=== PATIENT | male | born 1970 | race Asian ===

== ENCOUNTER 2017-12-03 18:49 | Emergency (ER) | payer OTHER, SELFPAY ==
[2017-12-03 18:54] VITALS: BP 131/85; PULSE 89; RESP 18; TEMP 36.6; O2SAT 100
--- NOTE | 2017-12-03 19:15 | ED.UPPEXIN ---
HPI - Extremity Injury (Upper) General Chief Complaint: Extremity Injury, Upper Stated Complaint: CUT TWO FINGER PRETTY BAD RT HAND Time Seen by Provider: 12/03/17 19:13 Source: patient Mode of arrival: ambulatory Limitations: no limitations History of Present Illness HPI narrative: Patient to the ED with chief complaint of deep laceration to R index finger from a saw while cutting frozen fish while at work. He denies any other injury. MD complaint: injury to: right and finger Onset (ago): hour(s) Other injuries: none Handedness: right Place: work Severity: moderate Relieving factors: immobilization Exacerbating factors: movement of extremity Context: laceration Associated symptoms: denies other symptoms Related Data Home Medications Medication Instructions Recorded Confirmed [CHOLESTEROL MED] BID #0 04/19/17 lisinopril 20 mg PO QDAY #0 04/19/17 Previous Rx's Medication Instructions Recorded hydrocodone-acetaminophen [Paramus] 1 tab PO Q4HP PRN #7 tab 04/19/17 cephalexin [Keflex] 500 mg PO QID 7 Days #28 cap 12/03/17 hydrocodone-acetaminophen 1 tab PO Q4-6H PRN #14 tab 12/03/17 Allergies Allergy/AdvReac Type Severity Reaction Status Date / Time No Known Allergies Allergy Verified 12/03/17 19:19 Review of Systems Review of Systems All systems reviewed & are unremarkable except as noted in HPI and below Constitutional Denies chills, Denies fever(s), Denies lethargy and Denies weakness Eyes Denies change in vision, Denies eye discharge, Denies irritation and Denies loss of vision ENT Ears, Nose, Mouth, and Throat: Denies change in voice, Denies neck pain and Denies sore throat Cardiovascular Denies chest pain, Denies irregular heart rhythm, Denies lightheadedness, Denies palpitations, Denies dyspnea, Denies dyspnea on exertion and Denies orthopnea Respiratory Denies cough, Denies dyspnea, Denies dyspnea on exertion and Denies wheezing Genitourinary Denies hematuria, Denies flank pain, Denies urinary incontinence and Denies urinary urgency Musculoskeletal Denies neck pain and Reports numbness (to tip of finger) Integumentary/Breasts Comments: deep laceration Neurologic Denies confusion, Denies loss of vision, Reports numbness (to tip of finger) and Denies weakness Psychiatric Denies anxiety, Denies confusion, Denies depression, Denies homicidal ideation and Denies suicidal ideation Endocrine Denies palpitations Allergic/Immunologic Denies wheezing PFSH Social History Smoking Status: Former smoker Exam Initial Vital Signs Initial Vital Signs: Vital Signs Temperature 97.9 F 12/03/17 18:54 Pulse Rate 89 12/03/17 18:54 Respiratory Rate 18 12/03/17 18:54 Blood Pressure 131/85 H 12/03/17 18:54 Pulse Oximetry 100 12/03/17 18:54 Const General: cooperative and well developed Nutritional Appearance: well nourished Orientation: alert, awake, oriented x3 and not confused HENMT Head: normocephalic and atraumatic Ears: external ears normal and TM's normal bilaterally Nose: external nose normal and No nasal discharge Face and sinus: sinuses nontender, face symmetric, no sinus tenderness and No dry mucous membranes Mouth: oral mucosae normal and moist mucous membranes Teeth and gingiva: dentition normal Throat: tonsils normal and uvula midline Resp Effort & Inspection: normal respiratory effort, able to speak in complete sentences, no respiratory distress and no use of accessory muscles Auscultation: clear to auscultation bilaterally, no rales, no rhonchi and no wheezes GI Inspection: non-distended Palpation: soft, no hepatosplenomegaly, No guarding, No pulsatile mass and No tender Auscultation: normal bowel sounds Back/Spine/Pelvis Back: No CVA tenderness Cervical Spine: cervical ROM normal and No pain with cervical ROM Thoracic/Lumbar Spine: thoracic and lumbar spine normal to inspection Skin Trauma: laceration (volar surface of R index finger just distal to DIP) Neuro General: alert, awake and oriented x3 Motor: muscle tone normal throughout Procedures Joint Aspiration/Injection Laceration 1: Site: hand Side (If applicable): right Size (cm): 3 Description: linear Depth: simple, single layer Local Anesthetic: lidocaine 1% and with bicarb Pre-repair: wound explored, irrigated extensively and deep structures intact Skin layer closed with: nylon Size (cm): 5-0 Number of sutures: 6 Technique: simple, interrupted Course Orders Ordered: ED Orders 12/03/17 19:16 XR finger RT min 2V Stat Discontinued Medications Hydrocodone Bitart/Acetaminophen (Paramus 5/325) 1 tab PO NOW ONE Stop: 12/03/17 19:17 Last Admin: 12/03/17 19:30 Dose: 1 tab Diphtheria/Tetanus/Acell Pertussis (Adacel) 0.5 ml IM .ONCE ONE Stop: 12/03/17 19:17 Last Admin: 12/03/17 19:31 Dose: 0.5 ml Vital Signs - 8 hr 12/03/17 18:54 Temperature 97.9 F Pulse Rate 89 Respiratory Rate 18 Blood Pressure 131/85 H Pulse Oximetry 100 Discharge Plan Departure Patient Disposition: Home, Self-Care Clinical Impression: Laceration of finger, index Instructions: DI for Laceration Repair Activity Restrictions/Additional Instructions: 1. Take meds as directed 2. Keep dressing clean and dry 3. Follow up with Wound Care, call for appointment 4. Return to the ED for worsening, symptoms or signs of infection such as redness, increasing pain, fever over 101F or other concerns Prescriptions: New hydrocodone-acetaminophen 5-325 mg tablet 1 tab PO Q4-6H PRN (Reason: pain) Qty: 14 RF: 0 cephalexin [Keflex] 500 mg capsule 500 mg PO QID 7 Days Qty: 28 RF: 0 No Action lisinopril 20 MG tablet 20 mg PO QDAY Qty: 0 RF: 0 [CHOLESTEROL MED] BID Qty: 0 RF: 0 hydrocodone-acetaminophen [Paramus] 5 MG/325 MG tablet 1 tab PO Q4HP PRNQty: 7 RF: 0 Referrals: Conrad Mclaughlin MD [Physician] -
--- NOTE | 2017-12-03 19:16 | DI.RAD.S_ITS ---
PROCEDURE: XR FINGER RT MIN 2V INDICATIONS: chainsaw injury to finger, pain, cannot move TECHNIQUE: AP hand, 2 views of the second finger(s) acquired. COMPARISON: None. FINDINGS: Bones: No fractures or dislocations. No suspicious bony lesions. Soft tissues: No suspicious soft tissue calcifications. IMPRESSION: No fracture or foreign body seen but the second digit distal soft tissues are distorted consistent with the clinical history provided of chainsaw injury. Dictated by: Alok Yusuf M.D. on 12/03/2017 at 20:05 Approved by: Alok Yusuf M.D. on 12/03/2017 at 20:05
[2017-12-03] MEDS: HYDROCODONE/ACET 5/325 TABLET 1 TAB PO (19:30)
[2017-12-03] MEDS: TET,DIPH,PERTUSS(ACELL),VAC/PF 0.5 ML SYRINGE IM (19:31)
[2017-12-03 21:22] VITALS: BP 121/91; PULSE 71; RESP 15; O2SAT 99
== END 2017-12-03 21:23 | disposition home or self-care (01) ==
PROVIDERS: Emergency Provider Emergency Medicine
DX: S61.210A Laceration without foreign body of right index finger without damage to nail, initial encounter (principal); W31.2XXA Contact with powered woodworking and forming machines, initial encounter
CPT/HCPCS: 12002; 73140; 90471; 99282; 99283; 90715

== ENCOUNTER 2019-06-14 13:32 | Emergency (ER) | payer OTHER, SELFPAY ==
[2019-06-14 13:57] VITALS: BP 153/108; PULSE 69; RESP 21; O2SAT 99; BMI 26.4
--- NOTE | 2019-06-14 13:59 | DI.RAD.S_ITS ---
PROCEDURE: XR CHEST 1V INDICATIONS: chest pain TECHNIQUE: One view of the chest was acquired. COMPARISON: None. FINDINGS: Surgical changes and devices: None. Lungs and pleura: Lungs are clear. No pleural effusions or pneumothorax. Mediastinum: Mediastinal contours appear normal. Heart size is normal. Bones and chest wall: No suspicious bony lesions. Overlying soft tissues appear unremarkable. IMPRESSION: No acute pulmonary process. Dictated by: Helen Medina M.D. on 06/14/2019 at 14:55 Approved by: Helen Medina M.D. on 06/14/2019 at 14:56
[2019-06-14 14:22] LABS: Prothrombin Time 11.7 SECONDS (10.1-12.7)
[2019-06-14 14:25] LABS: PTT Partial Thromboplastin Tim 31 SECONDS (26.4-36.2)
[2019-06-14 14:27] LABS: Alanine Aminotransferase 135 IU/L (<50); Albumin 4.7 g/dL (3.5-5.0); Albumin Globulin Ratio 1.4 (1.0-2.8); Alkaline Phosphatase 65 U/L (38-126); Aspartate Aminotransferase 80 IU/L (17-59); BUN Creatinine Ratio 13.3 (6-22); Bilirubin Total 1.1 mg/dL (0.2-1.3); Blood Urea Nitrogen 12 mg/dL (9-20); Calcium 10.1 mg/dL (8.4-10.2); Carbon Dioxide 26 mmol/L (22-32); Chloride 102 mmol/L (98-107); Creatine Kinase 126 U/L (55-170); Estimated Glomerular Filt Rate > 60.0 mL/min (>60); Globulin 3.4 g/dL (1.7-4.1); Glucose 104 mg/dL (70-100); HEMOLYSIS < 15 (0-50); Lipase 91 U/L (23-300); Potassium 3.7 mmol/L (3.4-5.1); Sodium 136 mmol/L (137-145); Total Protein 8.1 g/dL (6.3-8.2)
[2019-06-14 14:35] LABS: Add Manual Diff / Slide Review NO; Basophils Absolute Auto 100 /uL (0-100); Eosinophils Absolute Auto 500 /uL (0-450); Eosinophils Percent Auto 7.6 % (2-4); Hematocrit 46.5 % (41-53); Hemoglobin 15.8 g/dL (13.5-17.5); Lymphocytes Absolute Auto 2900 /uL (1100-4500); Lymphocytes Percent Auto 43.5 % (25-40); Mean Corpuscular HGB Conc 34.1 % (30-36); Mean Corpuscular Hemoglobin 31.2 PG (26-34); Mean Corpuscular Volume 91.6 fL (80-100); Monocytes Absolute Auto 600 /uL (0-900); Monocytes Percent Auto 8.7 % (3-14); Neutrophils Absolute Auto 2600 /uL (1500-7000); Neutrophils Percent Auto 39.2 % (50-75); Platelet Count 225 X10^3/uL (150-400); Red Blood Cell Count 5.07 X10^6/uL (4.5-5.9); Red Cell Distribution Width 13.5 % (11.6-14.8); White Blood Cell Count 6.7 X10^3/uL (4.5-11.0)
[2019-06-14 14:39] LABS: Troponin I < 0.012 ng/mL (0.01-0.034)
[2019-06-14 14:43] LABS: CKMB % Relative Index 0.4 % (1.5-5.0); Creatine Kinase MB 0.52 ng/mL (<2.37)
[2019-06-14 15:11] VITALS: BP 132/100; PULSE 71; RESP 18; O2SAT 99
[2019-06-14 16:36] VITALS: BP 138/100; PULSE 64; RESP 16; O2SAT 100
--- NOTE | 2019-06-14 16:50 | ED.CHESTPAIN ---
HPI - Chest Pain General Chief Complaint: Chest Pain Stated Complaint: hypertension,symptamatic Time Seen by Provider: 06/14/19 14:29 Source: patient Mode of arrival: Ambulatory Limitations: no limitations History of Present Illness HPI narrative: Patient comes emergency department complaining of chest pain yesterday and neck pain that has been going on since yesterday, along with headache. patient denies radiation of the chest pain. He denies any nausea or vomiting. No shortness of breath. no fevers or chills. Patient has been able to move his neck, but complains of pain in the bilateral cervical paraspinal musculature. He describes the headache as frontal. No photophobia. No thunderclap. No other complaints at this time. Patient is on lisinopril 20 mg daily for his blood pressure. No recent dose changes. Related Data Home Medications Medication Instructions Recorded Confirmed lisinopril 20 mg PO DAILY #0 04/19/17 06/14/19 metformin 500 mg PO BID 06/14/19 06/14/19 Allergies Allergy/AdvReac Type Severity Reaction Status Date / Time No Known Allergies Allergy Verified 06/14/19 13:57 Review of Systems Constitutional Constitutional: Denies chills, Denies fatigue, Denies fever(s), Denies frequent falls, Reports headache(s), Denies lethargy and Denies weakness Eyes Eyes: Denies change in vision, Denies eye discharge, Denies irritation and Denies loss of vision ENT Ears, Nose, Mouth, and Throat: Denies change in voice, Denies dizziness, Reports headache(s), Reports neck pain, Denies sore throat and Denies throat swelling Cardiovascular Cardiovascular: Denies chest pain, Denies irregular heart rhythm, Denies lightheadedness, Denies palpitations, Denies dyspnea, Denies dyspnea on exertion and Denies orthopnea Respiratory Respiratory: Denies cough, Denies dyspnea, Denies dyspnea on exertion and Denies wheezing Gastrointestinal Gastrointestinal: Denies abdominal pain, Denies change in bowel habits, Denies diarrhea, Denies nausea and Denies vomiting Genitourinary Genitourinary: Denies hematuria, Denies flank pain, Denies urinary incontinence and Denies urinary urgency Musculoskeletal Musculoskeletal: Denies back pain, Denies muscle weakness, Reports neck pain, Denies numbness and Denies tingling Integumentary/Breasts Skin/Breast: Denies pruritus, Denies erythema, Denies rash and Denies wounds Neurologic Neurologic: Denies behavioral changes, Denies confusion, Denies dizziness, Denies frequent falls, Reports headache(s), Denies loss of vision, Denies numbness, Denies tingling and Denies weakness Psychiatric Psychiatric: Denies anxiety, Denies behavioral changes, Denies confusion, Denies depression, Denies homicidal ideation and Denies suicidal ideation Endocrine Endocrine: Denies fatigue, Denies flushing and Denies palpitations Hematologic/Lymphatic Hematologic/Lymphatic: Denies easy bruising Allergic/Immunologic Allergic/Immunologic: Denies urticaria, Denies throat swelling and Denies wheezing Patient History Social History Smoking Status: Former smoker alcohol intake frequency: 0-2 drinks per day Substance Use Type: does not use Exam Initial Vital Signs Initial Vital Signs: Vital Signs Pulse Rate 69 06/14/19 13:57 Respiratory Rate 21 06/14/19 13:57 Blood Pressure 153/108 H 06/14/19 13:57 Pulse Oximetry 99 06/14/19 13:57 Const General: cooperative and well developed Nutritional Appearance: well nourished Orientation: alert, awake, oriented x3 and not confused [place] Head: normocephalic and atraumatic Ears: external ears normal and TM's normal bilaterally Nose: external nose normal and No nasal discharge Face and sinus: sinuses nontender, face symmetric, no sinus tenderness and No dry mucous membranes Mouth: oral mucosae normal and moist mucous membranes Teeth and gingiva: dentition normal Throat: tonsils normal and uvula midline Eyes General: appearance normal, both eyes and all related structures Eyelids: eyelids normal Conjunctivae: conjunctivae normal Sclera: sclerae normal Pupils: PERRL EOM: EOM intact bilaterally Neck Neck: normal visual inspection, full ROM, no meningeal signs, trachea midline, No lymphadenopathy, No midline deformity, No positive Brudzinski's sign, No positive Kernig's sign and No JVD Lymphatic: No lymphedema Other: Mild tenderness, bilateral cervical paraspinal musculature. Chest Chest: normal inspection of the chest Resp Effort & Inspection: normal respiratory effort, able to speak in complete sentences, no respiratory distress and no use of accessory muscles Auscultation: clear to auscultation bilaterally, no rales, no rhonchi and no wheezes Cardio Rate: regular rate Rhythm: regular rhythm Heart Sounds: no click, no gallops, no murmurs and no rubs Pulses: normal peripheral pulses GI Inspection: non-distended Palpation: soft, no hepatosplenomegaly, No guarding, No pulsatile mass and No tender Auscultation: normal bowel sounds Back/Spine/Pelvis Back: No CVA tenderness Cervical Spine: cervical ROM normal and No pain with cervical ROM Thoracic/Lumbar Spine: thoracic and lumbar spine normal to inspection Skin General: no rashes or lesions noted, No jaundice and No petechiae Neuro General: alert, oriented x3, gait normal and no focal motor deficits Speech: speech normal Extrem General: full ROM, no clubbing, cyanosis or edema, no pedal edema and no calf tenderness Psych Appearance: well kempt Mental Status: mental status grossly normal Attitude: cooperative Thought Content: normal and suicidality Judgment: judgment good Course Course Course Narrative: Patient was treated with Toradol and lisinopril in the emergency department. His blood pressure did improve overall, though his diastolic was still high. Labs and EKG were unremarkable. I discussed with the patient is very important that he follow up with his primary care physician to discuss his medication regimen and whether this needs to be changed. The patient is currently asymptomatic, and I do not feel that he has hypertensive emergency. We have discussed home management of symptoms, the definite need for follow-up, and the usual indications for return. Orders Ordered: Discontinued Medications Ketorolac Tromethamine (Toradol) 30 mg IV NOW ONE Stop: 06/14/19 16:47 Last Admin: 06/14/19 17:00 Dose: 30 mg Documented by: CHERELLE Lisinopril (Zestril) 10 mg PO NOW ONE Stop: 06/14/19 16:47 Last Admin: 06/14/19 17:00 Dose: 10 mg Documented by: CHERELLE Vital Signs Vital signs: Vital Signs - 8 hr 06/14/19 13:57 06/14/19 15:11 06/14/19 16:36 Pulse Rate 69 71 64 Respiratory Rate 21 18 16 Blood Pressure 153/108 H Blood Pressure [Left Arm] 132/100 H 138/100 H Pulse Oximetry 99 99 100 MDM - Chest Pain Medical Records Data Attestation: I reviewed the patient's medical records. Lab Data Attestation: I reviewed the patient's lab results. Result diagrams: 06/14/19 14:06 06/14/19 14:06 Labs: Lab Results 06/14/19 06/14/19 06/14/19 Range/Units 14:06 14:06 14:06 WBC 6.7 (4.5-11.0) X10^3/uL RBC 5.07 (4.5-5.9) X10^6/uL Hgb 15.8 (13.5-17.5) g/dL Hct 46.5 (41-53) % MCV 91.6 (80-100) fL MCH 31.2 (26-34) PG MCHC 34.1 (30-36) % RDW 13.5 (11.6-14.8) % Plt Count 225 (150-400) X10^3/uL Neut % (Auto) 39.2 L (50-75) % Lymph % (Auto) 43.5 H (25-40) % [place] % (Auto) 8.7 (3-14) % Eos % (Auto) 7.6 H (2-4) % Baso % (Auto) 1.0 (0-2) % Neut # (Auto) 2600 (9520-4805) /uL Lymph # (Auto) 2900 (2193-1881) /uL [place] # (Auto) 600 (0-900) /uL Eos # (Auto) 500 H (0-450) /uL Baso # (Auto) 100 (0-100) /uL PT 11.7 (10.1-12.7) SECONDS INR 1.0 (0.9-1.3) APTT 31 (26.4-36.2) SECONDS Sodium 136 L (137-145) mmol/L Potassium 3.7 (3.4-5.1) mmol/L Chloride 102 (98-107) mmol/L Carbon Dioxide 26 (22-32) mmol/L BUN 12 (9-20) mg/dL Creatinine 0.90 (0.66-1.25) mg/dL Estimated GFR > 60.0 (>60) mL/min BUN/Creatinine Ratio 13.3 (6-22) Glucose 104 H (70-100) mg/dL Calcium 10.1 (8.4-10.2) mg/dL Total Bilirubin 1.1 (0.2-1.3) mg/dL AST 80 H (17-59) IU/L ALT 135 H (<50) IU/L Alkaline Phosphatase 65 (38-126) U/L Total Creatine Kinase 126 (55-170) U/L CK-MB (CK-2) 0.52 (<2.37) ng/mL CK-MB (CK-2) Rel Index 0.4 L (1.5-5.0) % Troponin I < 0.012 (0.01-0.034) ng/mL Total Protein 8.1 (6.3-8.2) g/dL Albumin 4.7 (3.5-5.0) g/dL Globulin 3.4 (1.7-4.1) g/dL Albumin/Globulin Ratio 1.4 (1.0-2.8) Lipase 91 (23-300) U/L Imaging Data Chest x-ray: Radiologist's impression: PROCEDURE: XR CHEST 1V INDICATIONS: chest pain TECHNIQUE: One view of the chest was acquired. COMPARISON: None. FINDINGS: Surgical changes and devices: None. Lungs and pleura: Lungs are clear. No pleural effusions or pneumothorax. Mediastinum: Mediastinal contours appear normal. Heart size is normal. Bones and chest wall: No suspicious bony lesions. Overlying soft tissues appear unremarkable. IMPRESSION: No acute pulmonary process. Dictated by: Helen Medina M.D. on 06/14/2019 at 14:55 Approved by: Helen Medina M.D. on 06/14/2019 at 14:56 ECG Data Attestation: I personally reviewed and interpreted this ECG as follows: (See below) Interpretation: Twelve lead EKG performed June 14, 2019 at 1:53 p.m., as follows: Regular ventricular rhythm with a rate of 67 beats per minute [place] interval 163 milliseconds QRS duration 94 millisecond QTC intervals 399 milliseconds No ectopy No significant ST T wave changes Interpretation: Normal sinus rhythm; no signs of acute ischemia; normal EKG as interpreted by ED MD. Discharge Plan Departure Patient Disposition: Home Clinical Impression: Acute neck pain Hypertension Qualifiers: Hypertension type: essential hypertension Qualified Code(s): I10 - Essential (primary) hypertension Discharge Date/Time: 06/14/19 17:07 Instructions: DI for High Blood Pressure Activity Restrictions/Additional Instructions: Your blood work looks good. Please talk to your doctor about increasing the dose of your lisinopril. There is no evidence of an emergent condition at this point in time. Prescriptions: No Action lisinopril 20 MG tablet 20 mg PO DAILY Qty: 0 RF: 0 metformin 500 mg Tablet 500 mg PO BID RF: 0 Referrals: Erica El MD [Primary Care Provider] -
[2019-06-14] MEDS: KETOROLAC 60 MG/2 ML VIAL 30 MG IV (17:00)
[2019-06-14] MEDS: LISINOPRIL 10 MG TABLET PO (17:00)
== END 2019-06-14 17:07 | disposition home or self-care (01) ==
PROVIDERS: Emergency Provider Emergency Medicine; PCP Family Medicine
DX: M54.2 Cervicalgia (principal); I10 Essential (primary) hypertension; R07.9 Chest pain, unspecified
CPT/HCPCS: 36415; 71045; 80053; 82550; 82553; 83690; 84484; 85025; 85610; 85730; 93005; 96374; 99283; 99285; J1885

== ENCOUNTER 2023-01-04 00:41 | Emergency (ER) | payer OTHER, MEDICAID, SELFPAY ==
[2023-01-04 00:50] VITALS: BP 111/74; PULSE 64; RESP 17; TEMP 36.6; O2SAT 96; BMI 22.3
[2023-01-04] MEDS: ONDANSETRON 4 MG/2 ML INJ IV (01:08)
[2023-01-04 01:11] VITALS: BP 114/76; PULSE 51; RESP 20; O2SAT 99
[2023-01-04 01:31] LABS: Add Manual Diff / Slide Review NO; Alanine Aminotransferase 23 IU/L (<50); Albumin 4.1 g/dL (3.5-5.0); Albumin Globulin Ratio 1.2 (1.0-2.8); Alkaline Phosphatase 67 U/L (38-126); Aspartate Aminotransferase 20 IU/L (17-59); BUN Creatinine Ratio 14.3 (6-22); Basophils Absolute Auto 0 /uL (0-100); Basophils Percent Auto 0.1 % (0-2); Bilirubin Total 0.9 mg/dL (0.2-1.3); Blood Urea Nitrogen 18 mg/dL (9-20); Calcium 9.5 mg/dL (8.4-10.2); Carbon Dioxide 23 mmol/L (22-32); Chloride 100 mmol/L (98-107); Eosinophils Absolute Auto 500 /uL (0-450); Eosinophils Percent Auto 4.9 % (2-4); Estimated Glomerular Filt Rate > 60 mL/min (>60); Globulin 3.5 g/dL (1.7-4.1); Glucose 126 mg/dL (70-100); HEMOLYSIS < 15 (0-50); Hematocrit 45.2 % (41-53); Hemoglobin 15.3 g/dL (13.5-17.5); Lipase 72 U/L (23-300); Lymphocytes Absolute Auto 2200 /uL (1100-4500); Lymphocytes Percent Auto 20.8 % (25-40); Mean Corpuscular HGB Conc 33.9 % (30-36); Mean Corpuscular Hemoglobin 29.9 PG (26-34); Monocytes Absolute Auto 1000 /uL (0-900); Neutrophils Absolute Auto 7000 /uL (1500-7000); Neutrophils Percent Auto 65.2 % (50-75); Platelet Count 216 X10^3/uL (150-400); Potassium 3.9 mmol/L (3.4-5.1); Red Blood Cell Count 5.13 X10^6/uL (4.5-5.9); Red Cell Distribution Width 13.6 % (11.6-14.8); Sodium 132 mmol/L (137-145); Total Protein 7.6 g/dL (6.3-8.2); White Blood Cell Count 10.8 X10^3/uL (4.5-11.0)
[2023-01-04 01:44] LABS: Bacteria Urine None Seen; Culture Indicated Urine Cult Not Indicated; RBC Urine 5-10/HPF (0-5/HPF); Squamous Epithelial Cell Urine 1-5 /HPF (0-5/HPF); WBC Urine 0-1/HPF (0-5/HPF)
--- NOTE | 2023-01-04 01:46 | ED_ITS ---
HPI - Abdominal Pain General Chief Complaint: Abdominal Pain Stated Complaint: possible kidney stone Time Seen by Provider: 01/04/23 01:25 Source: patient Mode of arrival: Ambulatory History of Present Illness HPI narrative: Patient 52-year-old male history of hypertension diabetes kidney stone presenting today with 2 days of right-sided flank pain radiating to his abdomen. He has a handful of times. No fever or chills. No painful or frequent urination. This feels like prior kidney stone. Related Data Home Medications Medication Instructions Recorded Confirmed lisinopril 20 mg tablet 20 mg PO DAILY ##0 04/19/17 06/14/19 metformin 500 mg tablet 500 mg PO BID 06/14/19 06/14/19 Previous Rx's Medication Instructions Recorded hydrocodone 5 mg-acetaminophen 325 1 tab PO Q6H PRN pain #10 tabs 01/04/23 mg tablet ondansetron 4 mg disintegrating 4 mg PO Q8H PRN nausea and 01/04/23 tablet vomiting #10 tabs tamsulosin 0.4 mg capsule (Flomax) 0.4 mg PO DAILY #7 caps 01/04/23 Allergies Allergy/AdvReac Type Severity Reaction Status Date / Time No Known Allergies Allergy Verified 06/14/19 13:57 Review of Systems Review of Systems ROS Unobtainable: All systems reviewed & are unremarkable except as noted in HPI and below Patient History Medical History (Updated 01/04/23 @ 03:06 by Annabelle Payan DO) Cellulitis of right arm Fracture of phalanx of left middle finger Hypertension Internal derangement of right knee Social History Smoking Status: Former smoker Smoking Status: Former smoker alcohol intake frequency: 0-2 drinks per day Substance Use Type: does not use Exam Initial Vital Signs Initial Vital Signs: Vital Signs Temperature 97.9 F 01/04/23 00:50 Pulse Rate 64 01/04/23 00:50 Respiratory Rate 17 01/04/23 00:50 Blood Pressure 111/74 01/04/23 00:50 Pulse Oximetry 96 01/04/23 00:50 Oxygen Delivery Method Room Air 01/04/23 00:50 GENERAL: Alert well-appearing 52-year-old male HEENT: Head atraumatic,EOMI, pupils reactive, face symmetric, moist mucous membranes CARDIOVASCULAR: Regular rate and rhythm without murmurs, rubs or gallops. RESPIRATORY: Breath sounds equal bilaterally, no wheezes rales or rhonchi. ABDOMEN: Soft, mild right lower quadrant pain no guarding no rebound negative for Peace sign minimal epigastric pain : Mild right CVA tenderness EXTREMITIES: Normal range of motion, no clubbing or edema. Neurovascularly intact NEUROLOGICAL: Alert and oriented x4.Normal gait and speech. SKIN: Warm, dry, no laceration, no petechiae, no rashes or lesions. Course Orders Ordered: ED Orders 01/04/23 01:00 Urine Microscopic Stat 01/04/23 01:05 Complete Blood Count AUTO DIFF Stat Comprehensive Metabolic Panel Stat Lipase Stat 01/04/23 01:50 CT kidney ureter bladder (KUB) Stat Discontinued Medications Hydrocodone Bitart/Acetaminophen (Hydrocodone/Acet 5/325 Prepack) 1 bottle MISC SEEINSTR ONE Stop: 01/04/23 02:59 Last Admin: 01/04/23 03:09 Dose: 1 bottle Documented By: ISABELA Ketorolac Tromethamine (Ketorolac 30 Mg/Ml Vial) 15 mg IV NOW ONE Stop: 01/04/23 01:51 Last Admin: 01/04/23 02:00 Dose: 15 mg Documented By: EMILY Morphine Sulfate (Morphine 2 Mg/Ml Inj) 2 mg IV NOW ONE Stop: 01/04/23 02:59 Last Admin: 01/04/23 03:09 Dose: 2 mg Documented By: ISABELA Ondansetron HCl (Ondansetron 4 Mg Odt) 4 mg PO NOW PRN PRN Reason: Nausea And Vomiting Ondansetron HCl (Ondansetron 4 Mg/2 Ml Inj) 4 mg IV NOW PRN PRN Reason: Nausea And Vomiting Last Admin: 01/04/23 01:08 Dose: 4 mg Documented By: EMILY Ondansetron HCl (Ondansetron 4 Mg Odt Prepack) 1 bottle MISC SEEINSTR ONE Stop: 01/04/23 02:59 Last Admin: 01/04/23 03:08 Dose: 1 bottle Documented By: ISABELA Vital Signs Vital signs: Vital Signs - 8 hr 01/04/23 00:50 01/04/23 01:11 01/04/23 03:23 Temperature 97.9 F Pulse Rate 64 51 L 48 L Respiratory Rate 17 20 20 Blood Pressure 111/74 114/76 110/73 Pulse Oximetry 96 99 98 Oxygen Delivery Method Room Air Room Air Room Air MDM - Abdominal Pain Lab Data 01/04/23 01:05 01/04/23 01:05 Labs: Lab Results 01/04/23 01/04/23 01/04/23 Range/Units 01:00 01:05 01:05 WBC 10.8 (4.5-11.0) X10^3/uL RBC 5.13 (4.5-5.9) X10^6/uL Hgb 15.3 (13.5-17.5) g/dL Hct 45.2 (41-53) % MCV 88.0 (80-100) fL MCH 29.9 (26-34) PG MCHC 33.9 (30-36) % RDW 13.6 (11.6-14.8) % Plt Count 216 (150-400) X10^3/uL Neut % (Auto) 65.2 (50-75) % Lymph % (Auto) 20.8 L (25-40) % [place] % (Auto) 9.0 (3-14) % Eos % (Auto) 4.9 H (2-4) % Baso % (Auto) 0.1 (0-2) % Neut # (Auto) 7000 (4169-7436) /uL Lymph # (Auto) 2200 (3724-1242) /uL [place] # (Auto) 1000 H (0-900) /uL Eos # (Auto) 500 H (0-450) /uL Baso # (Auto) 0 (0-100) /uL Sodium 132 L (137-145) mmol/L Potassium 3.9 (3.4-5.1) mmol/L Chloride 100 (98-107) mmol/L Carbon Dioxide 23 (22-32) mmol/L BUN 18 (9-20) mg/dL Creatinine 1.26 H (0.66-1.25) mg/dL Estimated GFR > 60 (>60) mL/min BUN/Creatinine Ratio 14.3 (6-22) Glucose 126 H (70-100) mg/dL Calcium 9.5 (8.4-10.2) mg/dL Total Bilirubin 0.9 (0.2-1.3) mg/dL AST 20 (17-59) IU/L ALT 23 (<50) IU/L Alkaline Phosphatase 67 (38-126) U/L Total Protein 7.6 (6.3-8.2) g/dL Albumin 4.1 (3.5-5.0) g/dL Globulin 3.5 (1.7-4.1) g/dL Albumin/Globulin Ratio 1.2 (1.0-2.8) Lipase 72 (23-300) U/L Urine RBC 5-10/hpf H (0-5/HPF) Urine WBC 0-1/hpf (0-5/HPF) Ur Squamous Epith Cells 1-5 /hpf (0-5/HPF) Urine Bacteria None seen (None) Ur Culture Indicated? Cult not indicated Point of care testing: Urine Dip Bedside Urine Glucose Negative Bedside Urine Bilirubin - Negative Bedside Urine Ketone - Negative Urine Specific [place] 1.02 Bedside Urine Occult Blood + Bedside Urine pH 6 Bedside Urine Protein - Negative Bedside Urine Urobilinogen - Negative Bedside Urine Nitrite - Negative Bedside Urine Leukocytes - Negative Esterase Imaging Data CT scan - abdomen/pelvis: Radiologist's Impression: PROCEDURE:? CT KIDNEY URETER BLADDER (KUB) ? INDICATIONS:? right flank pain ? TECHNIQUE:? Axial sections were acquired from the lung bases to the pubic symphysis.? Coronal and sagittal reformats were performed.? For radiation dose reduction, the following was used: ?automated exposure control, adjustment of mA and/or kV according to patient size.? ? COMPARISON:? None. ? FINDINGS:? Image quality:? Excellent.? ? Lung bases:? Unremarkable.? ? Heart:? No significant findings. ? URINARY: Right Kidney:? Moderate to severe hydronephrosis.? No renal stones.? Right Ureter:? Moderate to severe hydroureter.? Distal right ureteral calculus is present measuring 7 mm at the ureterovesicular junction.? ? Left Kidney: ? No stones or hydronephrosis. Left Ureter:? No hydroureter.? ? Bladder:? Normal wall thickness. No stones. ? ? ? ABDOMEN: Liver:? Unremarkable.? ? Gallbladder:? Unremarkable.? ? Biliary ducts:? Unremarkable.? ? Pancreas:? Unremarkable.? ? Spleen:? Unremarkable.? ? Adrenal Glands:? Unremarkable.? ? ? Stomach and Bowel:? Stomach, small bowel loops, and colon are nonobstructive.? Minimal colonic diverticular present. Peritoneum:? No abnormal intraperitoneal fluid.? No free air.? ? Ventral Wall: ? No hernia.? Abdominal Nodes:? No enlarged retroperitoneal or mesenteric lymph nodes.? Vessels:? Aorta and inferior vena cava are normal in size.? ? PELVIS: Pelvic Organs:? Unremarkable.? ? Pelvic Nodes: Unremarkable. Miscellaneous: No inguinal hernias are seen. ? ? ? Bones:? Unremarkable. ? IMPRESSION:? ? Moderate to severe right hydronephrosis and hydroureter secondary to distal right ureteral calculus. ? ? ? Dictated by: Helen Medina M.D. on 01/04/2023 at 2:07 ? ? MDM Narrative Medical decision making narrative: Patient 52-year-old male history of hypertension diabetes presenting today with site of flank pain. He is found have a 7 mm right-sided kidney stone at ureterovesicular junction. He is found to have mild elevation in creatinine typically 0.9 today is 1.2. He does not have a UTI or evidence of sepsis. Pain is better after Toradol and Zofran however needing a little bit more before go ing home. He does not have a urologist. I recommend he call our local urology in the morning to schedule follow-up appointment, he does not have a PCP to make a referral. Discussed with him if he has issues or worsening symptoms and he should return to the ED. Discharge Plan Departure Patient Disposition: Home Clinical Impression: Right nephrolithiasis Instructions: Kidney Stones -- Adult Activity Restrictions/Additional Instructions: *You have been diagnosed with right-sided kidney stone *What to do: At this time you may or may not pass this stone. You may need intervention from Urology *Continue to take medications as directed Motrin 600 mg every 6 hours for vysf-du-zsskjaau pain Zofran 4 mg every 8 hours if needed for nausea or vomiting [place] 1 tablet every 6 hours if needed for severe pain Flomax 1 tablet daily to help with passage of stone *Follow up with your primary care provider in 2-3 days or call [phone] Johnson or Dr. Alejnadro tomorrow to schedule appointment *Return to ER if you should have increasing pain fever vomiting or any new, worsening or concerning symptoms CONTROLLED SUBSTANCE DISCHARGE (Narcotoic/benzodiazepine/Flexeril/Phenergan) 1. You have been prescribed narcotic medications, it does have acetaminophen/Tylenol/paracetamol in it, DO NOT TAKE MORE THAN 4,00mg in 24 hours of Tylenol. TRAMADOL DOES NOT CONTAIN TYLENOL 2. Please understand that we cannot provide further refills of narcotics, benzodiazepines or controlled substances through the ED and her pain management will need to be through your provider. 3. While on these medications you cannot drive or operate heavy machinery. 4. You cannot sign legal documents or perform any duties such as this. 5. As long as you're taking opiate pain medications he should also be taking a stool softener such as Colace, Dulcolax, MiraLAX or prune juice, to help avoid constipation. Prescriptions: New hydrocodone-acetaminophen 5-325 mg tablet 1 tab PO Q6H PRN (Reason: pain) Qty: 10 0RF tamsulosin [Flomax] 0.4 mg capsule 0.4 mg PO DAILY Qty: 7 0RF Rx Instructions: administer 30 minutes after same meal each day; swallow whole with liquid; do not crush/chew/dissolve/open ondansetron 4 mg tablet,disintegrating 4 mg PO Q8H PRN (Reason: nausea and vomiting) Qty: 10 0RF No Action lisinopril 20 MG tablet 20 mg PO DAILY Qty: 0 metformin 500 mg Tablet 500 mg PO BID Referrals: Vaishnavi Hidalgo FNP-C [Primary Care Provider] - Lemuel Alejandro MD [Physician] - Conrad Johnson MD [Physician] - Stand Alone Forms: Patient Portal/API, Work Release Note
--- NOTE | 2023-01-04 01:50 | DI.CT.S_ITS ---
PROCEDURE: CT KIDNEY URETER BLADDER (KUB) INDICATIONS: right flank pain TECHNIQUE: Axial sections were acquired from the lung bases to the pubic symphysis. Coronal and sagittal reformats were performed. For radiation dose reduction, the following was used: automated exposure control, adjustment of mA and/or kV according to patient size. COMPARISON: None. FINDINGS: Image quality: Excellent. Lung bases: Unremarkable. Heart: No significant findings. URINARY: Right Kidney: Moderate to severe hydronephrosis. No renal stones. Right Ureter: Moderate to severe hydroureter. Distal right ureteral calculus is present measuring 7 mm at the ureterovesicular junction. Left Kidney: No stones or hydronephrosis. Left Ureter: No hydroureter. Bladder: Normal wall thickness. No stones. ABDOMEN: Liver: Unremarkable. Gallbladder: Unremarkable. Biliary ducts: Unremarkable. Pancreas: Unremarkable. Spleen: Unremarkable. Adrenal Glands: Unremarkable. Stomach and Bowel: Stomach, small bowel loops, and colon are nonobstructive. Minimal colonic diverticular present. Peritoneum: No abnormal intraperitoneal fluid. No free air. Ventral Wall: No hernia. Abdominal Nodes: No enlarged retroperitoneal or mesenteric lymph nodes. Vessels: Aorta and inferior vena cava are normal in size. PELVIS: Pelvic Organs: Unremarkable. Pelvic Nodes: Unremarkable. Miscellaneous: No inguinal hernias are seen. Bones: Unremarkable. IMPRESSION: Moderate to severe right hydronephrosis and hydroureter secondary to distal right ureteral calculus. Dictated by: Helen Medina M.D. on 01/04/2023 at 2:07 Approved by: Helen Medina M.D. on 01/04/2023 at 2:09
[2023-01-04] MEDS: KETOROLAC 30 MG/ML VIAL 15 MG IV (02:00)
[2023-01-04] MEDS: ONDANSETRON 4 MG ODT PREPACK 1 BOTTLE MISC (03:08)
[2023-01-04] MEDS: HYDROCODONE/ACET 5/325 PREPACK 1 BOTTLE MISC (03:09)
[2023-01-04] MEDS: MORPHINE 2 MG/ML INJ IV (03:09)
[2023-01-04 03:23] VITALS: BP 110/73; PULSE 48; RESP 20; O2SAT 98
== END 2023-01-04 03:24 | disposition home or self-care (01) ==
PROVIDERS: Emergency Provider Emergency Medicine; PCP Registered Nurse
DX: N20.0 Calculus of kidney (principal)
CPT/HCPCS: 36415; 74176; 80053; 81003; 81015; 83690; 85025; 96374; 96375; 99284; J1885; J2270; J2405

== ENCOUNTER 2023-07-15 17:05 | Emergency (ER) | payer OTHER, MEDICAID, SELFPAY ==
[2023-07-15] VITALS (13 sets, daily range): BP systolic 91–120; BP diastolic 56–79; PULSE 71–109; RESP 14–25; TEMP 35.8–36.9; O2SAT 94–98; BMI 25.7
[2023-07-15] MEDS: ONDANSETRON 4 MG/2 ML INJ IV (17:49)
[2023-07-15 17:58] LABS: Add Manual Diff / Slide Review NO; Basophils Absolute Auto 100 /uL (0-100); Basophils Percent Auto 0.7 % (0-2); Eosinophils Absolute Auto 200 /uL (0-450); Eosinophils Percent Auto 1.8 % (2-4); Hematocrit 47.4 % (41-53); Hemoglobin 16.1 g/dL (13.5-17.5); Lymphocytes Absolute Auto 2000 /uL (1100-4500); Lymphocytes Percent Auto 21.9 % (25-40); Mean Corpuscular HGB Conc 33.8 % (30-36); Mean Corpuscular Hemoglobin 30.6 PG (26-34); Mean Corpuscular Volume 90.3 fL (80-100); Monocytes Absolute Auto 800 /uL (0-900); Monocytes Percent Auto 8.7 % (3-14); Neutrophils Absolute Auto 6000 /uL (1500-7000); Neutrophils Percent Auto 66.9 % (50-75); Platelet Count 258 X10^3/uL (150-400); Red Blood Cell Count 5.26 X10^6/uL (4.5-5.9); Red Cell Distribution Width 14.1 % (11.6-14.8); White Blood Cell Count 8.9 X10^3/uL (4.5-11.0)
[2023-07-15 17:59] LABS: Alanine Aminotransferase 244 IU/L (<50); Albumin 4.5 g/dL (3.5-5.0); Albumin Globulin Ratio 1.3 (1.0-2.8); Alkaline Phosphatase 78 U/L (38-126); BUN Creatinine Ratio 11.3 (6-22); Bilirubin Total 1.1 mg/dL (0.2-1.3); Blood Urea Nitrogen 20 mg/dL (9-20); Calcium 10.4 mg/dL (8.4-10.2); Carbon Dioxide 27 mmol/L (22-32); Chloride 94 mmol/L (98-107); Estimated Glomerular Filt Rate 45 mL/min (>60); Globulin 3.5 g/dL (1.7-4.1); Glucose 276 mg/dL (70-100); Lipase 125 U/L (23-300); Potassium 3.7 mmol/L (3.4-5.1); Sodium 131 mmol/L (137-145)
--- NOTE | 2023-07-15 18:02 | PC.NURSE ---
Pt reports having a headache, abdominal pain and nausea the past 3 days along with on and off diarrhea. He reports having chest pain earlier today which radiated to bilateral shoulders. He currently denies chest pain. He mentioned getting sweaty when his blood sugar is low, but states my blood sugar is good now.
--- NOTE | 2023-07-15 18:37 | DI.CT.S_ITS ---
PROCEDURE: CT ABDOMEN PELVIS W CON INDICATIONS: Diffuse abdominal pain TECHNIQUE: After the administration of intravenous contrast, axial sections acquired from the lung bases to the pubic symphysis. Coronal and sagittal reformats were performed. For radiation dose reduction, the following was used: automated exposure control, adjustment of mA and/or kV according to patient size. COMPARISON: [facility], CT, CT KIDNEY URETER BLADDER (KUB), 01/04/2023, 1:56. FINDINGS: Image quality: Diagnostic. Lower Chest: There is a 8 mm nodule in the right lower lobe, unchanged in size since the last exam. No focal consolidation. Right basilar atelectasis. ABDOMEN: Liver: Liver is normal in size. There is severe hepatic steatosis.. Gallbladder: Gallbladder is mildly distended. No radiopaque gallstones. Biliary ducts: No biliary dilation. Pancreas: No ductal dilation. Spleen: Size is within normal limits. Adrenal Glands: No adrenal nodules. Kidneys and Ureters: No hydronephrosis. No solid mass. No complex renal cystic lesion which requires follow up. Stomach and Bowel: Normal small bowel and colonic caliber. Question diffuse colonic wall thickening involving the hepatic flexure , transverse colon and descending colon, suspicious for colitis. A few colonic diverticula are noted. No active diverticulitis. Normal appendix. Peritoneum: No abnormal intraperitoneal fluid. No free air. Ventral Wall: No hernia. Abdominal Nodes: No retroperitoneal or mesenteric adenopathy by size criteria. Vessels: Aorta and inferior vena cava are normal in size. PELVIS: Pelvic Organs: Unremarkable. Bladder: Bladder is contracted with appearance of concentric wall thickening.. Pelvic Nodes: No enlarged lymph nodes. Miscellaneous: No inguinal hernias are seen. Bones: No aggressive osseous abnormality. IMPRESSION: 1. Question mild colitis involving the hepatic flexure, transverse colon and sigmoid colon. 2. Mild diverticulosis without acute diverticulitis. 3. Severe hepatic steatosis. Dictated by: Sean Reese M.D. on 07/15/2023 at 19:32 Approved by: Sean Reese M.D. on 07/15/2023 at 19:37
--- NOTE | 2023-07-15 18:38 | ED_ITS ---
HPI - Abdominal Pain General Chief Complaint: Abdominal Pain Stated Complaint: abdominal pain, dizziness, headache Time Seen by Provider: 07/15/23 18:00 Source: patient Mode of arrival: Ambulatory History of Present Illness HPI narrative: 53-year-old male who presents with diffuse abdominal pain described as a dull, throbbing ache that has been progressively worsening for the last 3 days with associated nausea, vomiting, diarrhea and generalized throbbing, nonradiating headache. No other complaints or associated symptoms noted. Patient reports being in his usual state of health prior to symptom onset. Patient denies history of similar/prior symptoms. Patient arrives awake, alert, in no apparent distress and maintaining his own airway. Related Data Home Medications Medication Instructions Recorded Confirmed lisinopril 20 mg tablet 20 mg PO DAILY ##0 04/19/17 06/14/19 metformin 500 mg tablet 500 mg PO BID 06/14/19 06/14/19 Previous Rx's Medication Instructions Recorded hydrocodone 5 mg-acetaminophen 325 1 tab PO Q6H PRN pain #10 tabs 01/04/23 mg tablet ondansetron 4 mg disintegrating 4 mg PO Q8H PRN nausea and 01/04/23 tablet vomiting #10 tabs tamsulosin 0.4 mg capsule (Flomax) 0.4 mg PO DAILY #7 caps 01/04/23 amoxicillin 875 mg-potassium 1 tab PO BID #14 tabs 07/15/23 clavulanate 125 mg tablet Allergies Allergy/AdvReac Type Severity Reaction Status Date / Time No Known Allergies Allergy Verified 07/15/23 17:27 Review of Systems Review of Systems Narrative: See HPI for pertinent positives, otherwise negative review of systems Patient History Medical History (Updated 07/30/23 @ 00:01 by ) Hypertension Fracture of phalanx of left middle finger Cellulitis of right arm Internal derangement of right knee Social History Smoking Status: Former smoker Smoking Status: Former smoker alcohol intake frequency: 0-2 drinks per day Substance Use Type: does not use Exam Initial Vital Signs Initial Vital Signs: Vital Signs Temperature 96.4 F L 07/15/23 17:20 Pulse Rate 103 H 07/15/23 17:20 Respiratory Rate 18 07/15/23 17:20 Blood Pressure 94/56 L 07/15/23 17:20 Pulse Oximetry 94 07/15/23 17:20 Oxygen Delivery Method Room Air 07/15/23 17:20 Const General: cooperative and healthy appearing [facility] Head: normal to inspection, normocephalic and atraumatic Eyes General: Yes appearance normal, both eyes and all related structures Neck Neck: normal visual inspection, full ROM, no meningeal signs and trachea midline Chest Chest: normal inspection of the chest Resp Effort & Inspection: normal respiratory effort and able to speak in complete sentences Cardio Rate: regular rate Rhythm: regular rhythm Pulses: radial pulses present GI Inspection: distended Other: Diffuse abdominal tenderness, no rebound tenderness or guarding External: normal external exam Back/Spine/Pelvis Back: normal to inspection Skin General: no rashes or lesions noted Neuro General: patient alert, patient awake and patient oriented x3 Extrem General: normal to inspection and full ROM Psych Appearance: grossly normal and well kempt Course Orders Ordered: Discontinued Medications Amoxicillin/Clavulanate Potassium (Amoxicillin/Clav 875/125 Mg) 1 tab PO NOW ONE Stop: 07/15/23 20:53 Last Admin: 07/15/23 21:15 Dose: 1 tab Documented By: DULCE Sodium Chloride (Normal Saline 0.9%) 1,000 mls @ 1,000 mls/hr IV BOLUS ONE Stop: 07/15/23 19:35 Last Infusion: 07/15/23 20:26 Dose: Infused Documented By: Admin: 07/15/23 18:55 Dose: 1,000 mls/hr Documented By: SYLVIA Morphine Sulfate (Morphine 2 Mg/Ml Inj) 2 mg IV NOW ONE Stop: 07/15/23 18:37 Last Admin: 07/15/23 18:55 Dose: 2 mg Documented By: SYLVIA Ondansetron HCl (Ondansetron 4 Mg/2 Ml Inj) 4 mg IV NOW PRN PRN Reason: Nausea And Vomiting Last Admin: 07/15/23 17:49 Dose: 4 mg Documented By: SYLVIA Vital Signs Vital signs: Vital Signs - 8 hr 07/15/23 17:20 07/15/23 17:45 07/15/23 17:47 Temperature 96.4 F L Pulse Rate 103 H 92 H 89 Respiratory Rate 18 20 Blood Pressure 94/56 L Pulse Oximetry 94 98 Oxygen Delivery Method Room Air 07/15/23 17:47 07/15/23 18:00 07/15/23 18:00 Temperature Pulse Rate 93 H Respiratory Rate 25 H Blood Pressure 93/59 L 99/65 Pulse Oximetry 97 Oxygen Delivery Method Room Air 07/15/23 18:05 Temperature 98.5 F Pulse Rate Respiratory Rate Blood Pressure Pulse Oximetry Oxygen Delivery Method MDM - Abdominal Pain Differential Diagnosis Differential diagnosis: Likely abdominal pain, acute appendicitis, calculus of kidney, constipation, diverticulitis, gastroenteritis, pancreatitis and small bowel obstruction Lab Data 07/15/23 17:30 07/15/23 17:30 Labs: Lab Results 07/15/23 Range/Units 17:30 WBC 8.9 (4.5-11.0) X10^3/uL RBC 5.26 (4.5-5.9) X10^6/uL Hgb 16.1 (13.5-17.5) g/dL Hct 47.4 (41-53) % MCV 90.3 (80-100) fL MCH 30.6 (26-34) PG MCHC 33.8 (30-36) % RDW 14.1 (11.6-14.8) % Plt Count 258 (150-400) X10^3/uL Neut % (Auto) 66.9 (50-75) % Lymph % (Auto) 21.9 L (25-40) % [place] % (Auto) 8.7 (3-14) % Eos % (Auto) 1.8 L (2-4) % Baso % (Auto) 0.7 (0-2) % Neut # (Auto) 6000 (3018-5355) /uL Lymph # (Auto) 2000 (7538-8334) /uL [place] # (Auto) 800 (0-900) /uL Eos # (Auto) 200 (0-450) /uL Baso # (Auto) 100 (0-100) /uL Sodium 131 L (137-145) mmol/L Potassium 3.7 (3.4-5.1) mmol/L Chloride 94 L (98-107) mmol/L Carbon Dioxide 27 (22-32) mmol/L BUN 20 (9-20) mg/dL Creatinine 1.77 H (0.66-1.25) mg/dL Estimated GFR 45 L (>60) mL/min BUN/Creatinine Ratio 11.3 (6-22) Glucose 276 H (70-100) mg/dL Calcium 10.4 H (8.4-10.2) mg/dL Total Bilirubin 1.1 (0.2-1.3) mg/dL AST 152 H (17-59) IU/L ALT 244 H (<50) IU/L Alkaline Phosphatase 78 (38-126) U/L Total Protein 8.0 (6.3-8.2) g/dL Albumin 4.5 (3.5-5.0) g/dL Globulin 3.5 (1.7-4.1) g/dL Albumin/Globulin Ratio 1.3 (1.0-2.8) Lipase 125 (23-300) U/L Point of care testing: Urine Dip Bedside Urine Glucose Negative Bedside Urine Bilirubin - Negative Bedside Urine Ketone - Negative Urine Specific [place] 1.010 Bedside Urine Occult Blood - Negative Bedside Urine pH 6.0 Bedside Urine Protein - Negative Bedside Urine Urobilinogen - Negative Bedside Urine Nitrite - Negative Bedside Urine Leukocytes - Negative Esterase MDM Narrative Medical decision making narrative: Patient presents with diffuse abdominal pain. Current vital signs are within normal limits/nonactionable. Patient is afebrile. Diagnostic laboratory testing within normal limits/non actionable. Urinalysis not suggestive of UTI. Imaging is suggestive of colitis. Antibiotics given along with return precautions and PCP follow-up within 1 week. Patient discharged home in stable condition. Discharge Plan Departure Patient Disposition: Home Clinical Impression: Colitis, Abdominal pain, Nausea & vomiting Instructions: DI for Abdominal Pain-Adult, DI for Nausea -- Adult, DI for Colitis Prescriptions: New amoxicillin-pot clavulanate 875-125 mg tablet 1 tab PO BID Qty: 14 0RF No Action lisinopril 20 MG tablet 20 mg PO DAILY Qty: 0 hydrocodone-acetaminophen 5-325 mg tablet 1 tab PO Q6H PRN (Reason: pain) Qty: 10 0RF tamsulosin [Flomax] 0.4 mg capsule 0.4 mg PO DAILY Qty: 7 0RF Rx Instructions: administer 30 minutes after same meal each day; swallow whole with liquid; do not crush/chew/dissolve/open ondansetron 4 mg tablet,disintegrating 4 mg PO Q8H PRN (Reason: nausea and vomiting) Qty: 10 0RF metformin 500 mg Tablet 500 mg PO BID Referrals: Young,Livia, PA-C [Primary Care Provider] - As soon as possible Stand Alone Forms: Patient Portal/API, Work Release Note
[2023-07-15] MEDS: MORPHINE 2 MG/ML INJ IV (18:55)
[2023-07-15] MEDS: SODIUM CHLORIDE 0.9% 1,000 ML 1000 ML IV (18:55)
[2023-07-15] MEDS: AMOXICILLIN/CLAV 875/125 MG 1 TAB PO (21:15)
[2023-07-16 15:33] LABS: HEMOLYSIS 21 (0-50)
[2023-07-16 15:34] LABS: Aspartate Aminotransferase 152 IU/L (17-59)
== END 2023-07-15 21:19 | disposition home or self-care (01) ==
PROVIDERS: Emergency Medicine; Emergency Provider Emergency Medicine; PCP Physician Assistant Medical
DX: K52.9 Noninfective gastroenteritis and colitis, unspecified (principal); R10.9 Unspecified abdominal pain; R11.2 Nausea with vomiting, unspecified; Z79.899 Other long term (current) drug therapy
CPT/HCPCS: 36415; 74177; 80053; 81003; 83690; 85025; 93005; 96361; 96374; 96375; 99284; J2270; J2405; Q9967